=== PATIENT | male | born 1955 | race Two or more races ===

== ENCOUNTER 2024-07-26 17:44 | Inpatient (IN) | payer OTHER ==
[~2024-07-26] VITALS: Ht 165.1 cm; Wt 68.0 kg
[2024-07-26] MEDS ORDERED: NIFEDIPINE20 MG (17:50)
[2024-07-26] MEDS ORDERED: COZAAR50 MG (17:50)
[2024-07-26] MEDS ORDERED: HYDROCHLOROTHIA25 MG (17:50)
[2024-07-26] MEDS ORDERED: PIPERACILLIN/TAZOBACTAM SODIUM 2.25 GM in DEXTROSE 5 % IN WATER 50 ML IV SCH (18:24)
[2024-07-26] MEDS ORDERED: ONDANSETRON HCL 4 MG in 0.9 % SODIUM CHLORIDE 50 ML IV PRN (18:30)
[2024-07-26] MEDS ORDERED: FAMOTIDINE/PF 20 MG in 0.9 % SODIUM CHLORIDE 8 ML IV PUSH ONE (18:30)
[2024-07-26] MEDS ORDERED: 0.9 % SODIUM CHLORIDE 1,000 ML IV SCH (18:30)
[2024-07-26] MEDS ORDERED: hydrALAZINE HCL 20 MG VIAL IV PRN (18:45)
[2024-07-26] MEDS ORDERED: MORPHINE SULFATE 4 MG/ML CARTRIDGE IV SCH (20:00)
[2024-07-26 23:20] LABS: HEMATOCRIT 37.2 % (39.0-48.0); HEMOGLOBIN 13.4 g/dL (13-16.00); MEAN CELL VOLUME 85.9 fL (80.0-100.00); MEAN CORPUSCULAR HEMOGLOBIN 30.8 pg (27.00-32.0); MEAN CORPUSCULAR HGB CONC 35.9 g/dl (32.0-36.0); PLATELET COUNT 208 K/uL (150-450); RED BLOOD COUNT 4.33 M/uL (4.00-6.00); RED CELL DISTRIBUTION WIDTH 14.6 % (11.5-14.5)
[2024-07-26 23:27] LABS: URINE APPEARANCE Clear; URINE BILIRRUBIN Negative (NEGATIVE); URINE COLOR Yellow; URINE GLUCOSE Negative (NEGATIVE); URINE KETONE Negative (NEGATIVE); URINE LEUKOCYTE Negative; URINE NITRATE Negative; URINE PROTEIN Trace (NEGATIVE)
[2024-07-26 23:32] LABS: URINE CAST 2.28 uL (0.0-1.40); URINE EPITHELIAL CELLS 12.2 uL (0.0-38.8); URINE RBC 30.5 uL (0.0-20.8); URINE WBC 86.3 uL (0.0-23.2)
[2024-07-26 23:41] LABS: INR 1.37; PROTHROMBIN TIME 14.6 SECONDS (9.0-11.5)
[2024-07-26 23:53] LABS: BILIRUBIN TOTAL 0.86 mg/dL (0.3-1.2); CALCIUM 8.6 mg/dL (8.5-10.1); CREATININE SERUM 2.55 mg/dL (0.70-1.30); GFR 25.3; GLOBULINA 3.4 G/DL (2.4-3.5); POTASSIUM 4.23 mEq/L (3.5-5.1); TOTAL PROTEIN 6.4 gm/dL (6.4-8.2)
[2024-07-27 00:12] LABS: D DIMER 9.65 MG/L
[2024-07-27 00:22] LABS: PARTIAL THROMBOPLASTIN TIME 26.2 SECONDS (22.0-34.0)
[2024-07-27 00:34] LABS: ERYTHROCYTE SEDIMENTATION RATE < 1 mm/hr
[2024-07-27 01:51] LABS: URINE BLOOD TRACES
[2024-07-27 04:00] VITALS: BP 104/72; O2SAT 99
[2024-07-27 04:40] VITALS: BP 88/59; O2SAT 96
[2024-07-27 08:00] VITALS: BP 92/55; O2SAT 98
[2024-07-27] MEDS ORDERED: ENOXAPARIN SODIUM 30 MG/0.3 ML SYRINGE SUBCUTANEO SCH (09:00)
[2024-07-27] MEDS ORDERED: PANTOPRAZOLE SODIUM 40 MG/VIAL VIAL IV SCH (09:00)
[2024-07-27 15:51] VITALS: BP 87/60; O2SAT 95
[2024-07-27 18:02] LABS: ALBUMIN 2.9 gm/dL (3.4-5.0); BILIRUBIN TOTAL 1.28 mg/dL (0.3-1.2); CALCIUM 8.8 mg/dL (8.5-10.1); CREATININE SERUM 2.11 mg/dL (0.70-1.30); GFR 31.39; GLOBULINA 3.1 G/DL (2.4-3.5); POTASSIUM 4.64 mEq/L (3.5-5.1)
[2024-07-27] MEDS ORDERED: 0.9 % SODIUM CHLORIDE 1,000 ML IV SCH (19:00)
[2024-07-27 21:29] VITALS: BP 92/59; O2SAT 98
[2024-07-28 07:12] LABS: HEMATOCRIT 36.8 % (39.0-48.0); MEAN CORPUSCULAR HEMOGLOBIN 30.3 pg (27.00-32.0); MEAN CORPUSCULAR HGB CONC 35.3 g/dl (32.0-36.0); PLATELET COUNT 178 K/uL (150-450); RED BLOOD COUNT 4.28 M/uL (4.00-6.00); RED CELL DISTRIBUTION WIDTH 14.8 % (11.5-14.5)
[2024-07-28 08:02] LABS: BILIRUBIN TOTAL 1.46 mg/dL (0.3-1.2); CALCIUM 8.5 mg/dL (8.5-10.1); CREATININE SERUM 1.88 mg/dL (0.70-1.30); GFR 35.86; GLOBULINA 3.3 G/DL (2.4-3.5); MAGNESIUM 2.7 mg/dL (1.8-2.4); PHOSPHOROUS 3.1 mg/dL (2.5-4.9); POTASSIUM 4.28 mEq/L (3.5-5.1); TOTAL PROTEIN 6.3 gm/dL (6.4-8.2)
[2024-07-28 08:10] VITALS: BP 122/71; O2SAT 98
[2024-07-28 08:14] LABS: C-REACTIVE PROTEIN 0.48 MG/DL (0.00-0.29)
[2024-07-28] MEDS ORDERED: SODIUM CHLORIDE 0.45 % 1,000 ML IV SCH (10:45)
[2024-07-28] MEDS ORDERED: DIATRIZOATE MEGLUMINE, SODIUM 30 ML BOTTLE PO NR (11:00)
[2024-07-28 16:00] VITALS: BP 100/64; O2SAT 96
[2024-07-28] MEDS ORDERED: NA PHOS,M-B/NA PHOS,DI-BA 1 BOTTLE ENEMA RECTAL STA (16:44)
[2024-07-29 00:50] VITALS: BP 147/88; O2SAT 95
[2024-07-29] MEDS ORDERED: NA PHOS,M-B/NA PHOS,DI-BA 1 BOTTLE ENEMA RECTAL NR (07:00)
[2024-07-29 08:19] VITALS: BP 118/85; O2SAT 100
[2024-07-29 09:33] LABS: BILIRUBIN TOTAL 1.17 mg/dL (0.3-1.2); CALCIUM 9.1 mg/dL (8.5-10.1); CREATININE SERUM 1.67 mg/dL (0.70-1.30); GFR 41.12; GLOBULINA 3.3 G/DL (2.4-3.5); POTASSIUM 3.45 mEq/L (3.5-5.1); TOTAL PROTEIN 6.3 gm/dL (6.4-8.2)
[2024-07-29] MEDS ORDERED: POTASSIUM CHLORIDE 20MEQ/100ML H2O PB IV NR (11:45)
[2024-07-29] MEDS ORDERED: MIDAZOLAM HCL 2 MG/2 ML VIAL IV ONE (13:00)
[2024-07-29] MEDS ORDERED: fentaNYL CITRATE 50 MCG/ML AMPUL IV PUSH ONE (13:00)
[2024-07-29] MEDS ORDERED: DIPHENHYDRAMINE HCL 50 MG/ML VIAL 1ML IV NR (13:00)
[2024-07-29 16:24] VITALS: BP 109/76; O2SAT 94
[2024-07-30 00:18] VITALS: BP 115/71; O2SAT 95
[2024-07-30 05:06] LABS: HEMATOCRIT 35.7 % (39.0-48.0); HEMOGLOBIN 12.8 g/dL (13-16.00); MEAN CELL VOLUME 86.1 fL (80.0-100.00); MEAN CORPUSCULAR HEMOGLOBIN 30.8 pg (27.00-32.0); MEAN CORPUSCULAR HGB CONC 35.8 g/dl (32.0-36.0); PLATELET COUNT 140 K/uL (150-450); RED BLOOD COUNT 4.15 M/uL (4.00-6.00); RED CELL DISTRIBUTION WIDTH 14.8 % (11.5-14.5)
[2024-07-30 05:35] LABS: ALBUMIN 2.9 gm/dL (3.4-5.0); CALCIUM 8.7 mg/dL (8.5-10.1); CREATININE SERUM 1.27 mg/dL (0.70-1.30); GFR 56.39; PHOSPHOROUS 3.2 mg/dL (2.5-4.9); POTASSIUM 3.81 mEq/L (3.5-5.1)
[2024-07-30 07:29] LABS: MAGNESIUM 2.2 mg/dL (1.8-2.4)
[2024-07-30] MEDS ORDERED: DEXTROSE 5 % IN WATER 1,000 ML IV SCH (07:45)
[2024-07-30 10:09] VITALS: BP 142/94; O2SAT 97
[2024-07-30] MEDS ORDERED: METOPROLOL TARTRATE 5MG/5ML AMPUL IV SCH (13:00)
[2024-07-30 16:27] VITALS: BP 130/88; O2SAT 95
[2024-07-30] MEDS ORDERED: AMINO ACIDS 4.25%/DEXTROSE 10% 1,000 ML CENTRAL SCH (17:00)
[2024-07-30 17:37] LABS: CALCIUM 8.7 mg/dL (8.5-10.1); CHOL HDL RATIO 1.8 (0-5.0); CREATININE SERUM 1.53 mg/dL (0.70-1.30); GFR 45.49; POTASSIUM 3.65 mEq/L (3.5-5.1)
[2024-07-31 00:58] VITALS: BP 114/79; O2SAT 95
[2024-07-31 08:00] VITALS: BP 145/80; O2SAT 97
[2024-07-31 08:41] LABS: ALBUMIN 2.6 gm/dL (3.4-5.0); CALCIUM 8.1 mg/dL (8.5-10.1); CREATININE SERUM 1.29 mg/dL (0.70-1.30); GFR 55.39; POTASSIUM 3.57 mEq/L (3.5-5.1)
[2024-07-31] MEDS ORDERED: POTASSIUM PHOS,M-BASIC-D-BASIC 9 MM in 0.9 % SODIUM CHLORIDE 250 ML IV ONE (12:00)
[2024-07-31] MEDS ORDERED: ONDANSETRON HCL 4 MG in 0.9 % SODIUM CHLORIDE 50 ML IV PRN (15:37)
[2024-08-01] VITALS: BP 151/76; O2SAT 100
[2024-08-01 08:00] VITALS: BP 124/72; O2SAT 98
[2024-08-01] MEDS ORDERED: AMIODARONE HCL 50 MG/ML AMPUL IV STA (10:27)
[2024-08-01 12:00] VITALS: BP 114/72; O2SAT 99
[2024-08-01 15:00] VITALS: BP 182/85; O2SAT 99
[2024-08-01 18:30] VITALS: BP 137/90; O2SAT 98
== END 2024-08-01 23:40 | disposition expired | DRG 389 ==
LOC: ER 17:44 → SURG 19:29
PROVIDERS: General Practice; Internal Medicine; Internal Medicine Infectious Disease; Internal Medicine Nephrology; ADMIT Internal Medicine; ATTEND Internal Medicine
PROC: BW21ZZZ Computerized Tomography (CT Scan) of Abdomen and Pelvis (ICD-10-PCS; principal; 2024-07-28)
PROC: 0DJD8ZZ Inspection of Lower Intestinal Tract, Via Natural or Artificial Opening Endoscopic (ICD-10-PCS; 2024-07-29)
PROC: 0D7N8ZZ Dilation of Sigmoid Colon, Via Natural or Artificial Opening Endoscopic (ICD-10-PCS; 2024-07-29)
PROC: 0D7P8ZZ Dilation of Rectum, Via Natural or Artificial Opening Endoscopic (ICD-10-PCS; 2024-07-29)
PROC: B246ZZZ Ultrasonography of Right and Left Heart (ICD-10-PCS; 2024-07-30)
PROC: 02HV33Z Insertion of Infusion Device into Superior Vena Cava, Percutaneous Approach (ICD-10-PCS; 2024-07-30)
PROC: 4A12X4Z Monitoring of Cardiac Electrical Activity, External Approach (ICD-10-PCS; 2024-07-31)
PROC: 0BH18EZ Insertion of Endotracheal Airway into Trachea, Via Natural or Artificial Opening Endoscopic (ICD-10-PCS; 2024-08-01)
DX: K56.690 Other partial intestinal obstruction (principal); C20 Malignant neoplasm of rectum; E87.0 Hyperosmolality and hypernatremia; N17.8 Other acute kidney failure; K91.89 Other postprocedural complications and disorders of digestive system; I10 Essential (primary) hypertension; I48.91 Unspecified atrial fibrillation; K59.09 Other constipation